=== PATIENT | female | born 1970 | race Caucasian/White ===

== ENCOUNTER 2021-02-04 21:15 | Emergency (ER) | payer BC ==
[~2021-02-04] VITALS: Ht 157.5 cm; Wt 52.2 kg
== END 2021-02-04 23:22 | disposition home or self-care (01) ==
LOC: ER 21:15
DX: M79.672 Pain in left foot (principal)
CPT/HCPCS: 73610; 73630; 99283-25

== ENCOUNTER → 2025-05-16 | Outpatient (CLI) | payer SELFPAY | LOC: LAB 15:29 → LAB SHORT 15:29 | DX: N39.0 Urinary tract infection, site not specified (principal) | CPT/HCPCS: 87086 ==